=== PATIENT | male | born 1980 | race African-American/Black ===

== ENCOUNTER 2022-11-07 16:16 | Emergency (ER) | payer BC, MEDICAID ==
[~2022-11-07] VITALS: Ht 185.4 cm; Wt 140.4 kg
[~2022-11-07 16:16] MED LIST: HYDR-2598
[2022-11-07] MEDS ORDERED: amLODIPine BESYLATE 5 MG TAB PO ONE (17:00)
[2022-11-07] MEDS ORDERED: AML5T PO (17:40)
[2022-11-07 19:35] VITALS: BP 168/111; PULSE 81; RESP 18; TEMP 98.1; O2SAT 98
== END 2022-11-07 19:35 | disposition home or self-care (01) ==
LOC: ER 16:16
DX: I10 Essential (primary) hypertension (principal); M54.2 Cervicalgia; E11.9 Type 2 diabetes mellitus without complications; Z79.899 Other long term (current) drug therapy
CPT/HCPCS: 82962